=== PATIENT | female | born 1970 | race Two or more races ===

== ENCOUNTER 2023-05-21 09:16 | Outpatient (RCR) | payer OTHER, SELFPAY ==
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
== END 2023-08-13 09:16 | disposition still patient (30) ==
LOC: HO.SH 09:16
PROVIDERS: PCP Physician Assistant Medical; Referring Provider Otolaryngology; Visit Provider Otolaryngology
DX: R49.0 Dysphonia (principal); J38.1 Polyp of vocal cord and larynx
CPT/HCPCS: 92524

== ENCOUNTER 2023-09-08 14:20 | Outpatient (RCR) | payer OTHER, SELFPAY ==
--- NOTE | 2023-10-06 12:18 | MHC.SL.SOA ---
Referring Provider: Janette Kitchen MD Reason for Referral: Vocal cord polyp, Horseness Date of Plan of Treatment:05/21/23 Onset of Symptoms/Illness:05/21/23 Date Treatment Started:05/21/23 Medical Diagnosis:Vocal cord polyp Primary Speech Language Diagnosis:R49.0 Dysphonia Secondary Speech Language Diagnosis: Number of Authorized Visits Remaining: Authorization End Date: Reason for Visit:Non-billable Event Other: Discharge Summary Background: Ismael was evaluated at [facility] for voice in May 2023. She began COUNSELING SPECIALIST tx at [facility] in August 2023. Ismael was seen at the ENT 03/25/23 which showed a small polyp on the left vocal cord. Ismael reports that she was seen for a f/u appointment in August 2023 which showed that the polyp had decreased in size and redness. She reports that she made some lifestyle changes like drinking more water (4 8oz cups) and monitoring her vocal volume. She has another ENT f/u appointment this fall/winter. Plan: Between July and August 2023, Ismael was seen for 3 sessions for voice therapy via teletherapy. At the first appointment Ismael made it clear that she had already made some adaptations to her lifestyle to improve vocal hygiene and demonstrated adequate understanding of vocal abuse behaviors. Throughout the sessions, Ismael was able to consistently identify situations of appropriate vocal use vs. abuse, provide examples of good vocal hygiene, and provide appropriate solutions to scenarios minimize negative impacts on voice. She was introduced to diaphragmatic breathing to support improvement of respiratory support. This clinician and the client had made a plan to have one final wrap-up session to check in to ensure understanding of diaphragmatic breathing, review any questions, and introduce a new vocal technique. The appointment was cancelled approximately 24 hours in advance and the client expressed no interest in rescheduling. Although it was recommended for Ismael to attend 1-2 more sessions, further voice therapy is likely not warranted at this time as patient demonstrates an adequate understanding of vocal abuse and has demonstrated significant lifestyle changes to reduce strain on voice. Please re-refer if anything changes with future ENT f/u appointment. Goal # : STG1: Pt will demonstrate back diaphragmatic breathing in at least 8/10 trials after a training period. Status of Goal: Discharge Goal; Patient may have benefitted from one f/u to ensure correct practice of diaphragmatic breathing, however this was not done d/t cancellation of the last scheduled appointment. Goal # : STG2: Pt will use prolonged initial /h/ at the word level to familiarize herself with the concept of easy-onset phonation with >80% accuracy and minimal cues. Status of Goal: Discharge Goal; Easy-onset phonation was discussed briefly but not targeted with the clinician d/t cancellation of the last scheduled appointment. Goal # : STG3: Pt will complete weekly HEP exercises to facilitate carryover of treatment gains. Status of Goal: Goal Met; Patient consistently demonstrated completion of home exercises Goal # : STG4: Pt will complete repeat MVDP analysis at the end of treatment. Status of Goal: Discharge Goal; Repeat MVDP analysis not completed as patient was not interested in scheduling future appointments Seen by: Graduate/Clinical Fellow: No Supervisory Statement: f_Reg Query Last Value , [email or web address] Speech Language Pathologist: Christen Joseph M.A., CCC-COUNSELING SPECIALIST
== END 2023-10-06 12:59 | disposition home or self-care (01) ==
LOC: HO.SH 14:20
PROVIDERS: PCP Physician Assistant Medical; Visit Provider Otolaryngology
DX: R49.0 Dysphonia (principal); J38.1 Polyp of vocal cord and larynx
CPT/HCPCS: 92507